=== PATIENT | female | born 1985 | race Hispanic/Latino ===

== ENCOUNTER 2017-02-28 10:52 | Emergency (ER) | payer SELFPAY ==
[2017-02-28 11:31] LABS: Bilirubin Negative (Negative); Blood, Urine Negative (Negative); Glucose, Urine (Dipstick) Negative (Negative); Ketone, Urine Negative (Negative); Nitrite Negative (Negative); Protein, Urine (Dipstick) Negative (Neg-Trace); Urobilinogen 0.2 mg/dL (0.2-1.0)
[2017-02-28 11:33] LABS: Bacteria/HPF 1+ HPF (None Seen); Hyaline Casts/LPF 0-3 HYALINE CAST LPF (0-3 Hyaline); RBC/HPF 0-3 HPF (0-3); WBC/HPF 0-3 HPF (0-3)
[2017-02-28 11:48] LABS: Troponin I Less than 0.010 ng/mL (< 0.028)
[2017-02-28 11:49] LABS: ALT (SGPT) 17 U/L (8-55); AST (SGOT) 16 U/L (5-34); Alkaline Phosphatase 60 U/L (40-150); Anion Gap 10 mmol/L (10-20); BUN (Urea Nitrogen) 6 mg/dL (7.0-18.7); Bilirubin, Total 0.3 mg/dL (0.2-1.2); Calc. Creatinine Clearance 0 mL/min (70-130); Calcium 9.2 mg/dL (7.8-10.44); Carbon Dioxide 27 mmol/L (22-29); Chloride 104 mmol/L (98-107); Estimated GFR-MDRD 84; Globulin 3.7 g/dL (2.4-3.5); Protein, Total 7.9 g/dL (6.0-8.3)
== END 2017-02-28 12:30 | disposition home or self-care (01) ==
LOC: ERS 10:52
DX: N39.0 Urinary tract infection, site not specified (principal)
CPT/HCPCS: 36415; 80053; 81003; 81015; 81025; 82553; 84484; 87086; 99284

== ENCOUNTER 2020-08-23 18:03 | Outpatient (CLI) | payer MEDICARE, OTHER, SELFPAY | END 2020-08-23 18:04 | disposition home or self-care (01) | LOC: SCSRAD 18:03 | PROVIDERS: ATTEND Family Medicine | DX: R05 Cough (principal) | CPT/HCPCS: 71046 ==